=== PATIENT | female | born 1960 | race African-American/Black ===

== ENCOUNTER 2019-11-24 01:52 | Inpatient (IN) ==
[2019-11-24] MEDS ORDERED: ZOFRAN IV ONE (02:22)
[2019-11-24] MEDS ORDERED: NS 1,000 ML IV ONE (02:22)
[2019-11-24] MEDS ORDERED: DILAUDID IV ONE (02:22)
[2019-11-24 02:24] LABS: BASO# 0.03 X1000 (0.0-0.2); BASO% 0.2 % (0.0-0.8); EOS# 0.15 X1000 (0.0-0.7); EOS% 1.1 % (0.0-10.0); HEMATOCRIT 40.4 % (37.0-47.0); HEMOGLOBIN 13.4 g/dL (12.0-16.0); LYMPH% 18.5 % (20.5-51.1); MCH 32.1 PG (27-31); MCHC 33.2 g/dL (33-37); MCV 96.7 FL (81-99); MONO# 0.93 X1000 (0.11-0.59); MONO% 6.6 % (1.7-9.3); MPV 10.2 FL (7.4-10.4); NEUT# 10.35 X1000 (1.4-6.5); NEUT% 73.6 % (42.2-75.2); PLT 278 X1000 (130-400); RBC 4.18 XMIL (4.2-5.4); RDW 11.6 % (11.5-14.5); WBC 14.06 X1000 (4.8-10.8)
[2019-11-24 02:36] LABS: ESTIMATED GFR > 60
[2019-11-24 02:38] LABS: AGAP 13; ALB/GLOB RATIO 1.7; ALBUMIN 4.7 g/dL (3.5-5.0); ALKALINE PHOSPHATASE 62 U/L (32-104); BUN 15 mg/dL (8-22); CALCIUM 9.7 mg/dL (8.8-10.2); CHLORIDE 99 mmol/L (98-107); COSMO 282; CREATININE 1.1 mg/dL (0.5-0.9); GLUCOSE 135 mg/dL (70-104); GOT 158 U/L (10-30); GPT 71 U/L (10-36); POTASSIUM 3.7 mmol/L (3.5-5.1); SODIUM 140 mmol/L (136-145); TCO2 28 mmol/L (25-35); TOTAL BILIRUBIN 0.51 mg/dL (0.20-1.00); TOTAL PROTEIN 7.4 g/dL (6.3-8.3)
[2019-11-24 02:57] LABS: AMYLASE 2539 U/L (20-200); LIPASE 2330 U/L (13-60)
[2019-11-24 03:47] LABS: URINE SOURCE CLEAN CATCH
[2019-11-24 03:50] LABS: BILIRUBIN URINE NEGATIVE (NEGATIVE); BLOOD URINE NEGATIVE (NEGATIVE); COLOR YELLOW; GLUCOSE URINE NEGATIVE (NEGATIVE); KETONE URINE NEGATIVE (NEGATIVE); LEUKOCYTES URINE NEGATIVE (NEGATIVE); NITRITE URINE NEGATIVE (NEGATIVE); PROTEIN URINE TRACE mg/dL (NEGATIVE); SP GRAVITY URINE 1.046; TURBIDITY URINE CLEAR (CLEAR); UROBILINOGEN URINE NORMAL (NORMAL)
[2019-11-24 03:52] LABS: UR EPITHELIAL CELLS <10 /HPF (<10); URINE BACTERIA 1+ /HPF; URINE RBC <10 /HPF (<10); URINE WBC <10 /HPF (<10)
--- NOTE | 2019-11-24 03:56 | PROVIDER DOCUMENTATION ---
HPI-Abdominal Pain/GI Problem - General Chief Complaint: Abdominal Pain Stated Complaint: N/V/D Time Seen by Provider: 11/24/19 01:55 Source: patient Allergies/Adverse Reactions: Patient Allergies Allergy/AdvReac Type Severity Reaction Status Date / Time No Known Allergies Allergy Verified 11/24/19 02:11 Home Medications: Home Medication List Medication Instructions Recorded Confirmed Last Taken Type Duloxetine HCl 60 mg PO DAILY 11/24/19 11/24/19 Unknown History Gabapentin 300 mg PO DAILY 11/24/19 11/24/19 Unknown History - History of Present Illness-ABD Nature of Presenting Problems: 59 y/o BF c/o epigastric pain with N/V/D since yesterday. She denies any bad food or ill contacts. Pt notes that she has vomited 4-5 times in the last day and had 2 episodes of diarrhea. Abdominal Pain Onset Location: reports: RUQ, epigastric Pain Radiation: reports: RUQ Quality of Pain: reports: aching, sharp Severity in ED: reports: moderate Onset/Duration: reports: 2 days ago Timing: reports: still present, getting worse Activities at Onset: reports: light activity Exposure to sick contacts?: No Modifying Factors: improves with: vomiting Associated Symptoms: reports: diarrhea, heartburn, nausea, vomiting Last BM: 24 hours ago Dark Stools Present?: reports: none noticed Rectal Bleeding: reports: none # of Diarrhea Episodes: 2 Rectal Pain: reports: none # of Vomiting Episodes: 5 Emesis Description: reports: clear Bruising or Bleeding Gums?: No Similar Symptoms Previously?: No Recently seen or treated by another doctor?: No Review of Systems - Adult - REVIEW OF SYSTEMS - ADULT Constitutional: reports: no symptoms reported, see HPI Eyes: reports: no symptoms reported, see HPI Ears, Nose, Mouth & Throat: reports: no symptoms reported, see HPI Cardiovascular: reports: no symptoms reported, see HPI Respiratory: reports: no symptoms reported, see HPI Gastrointestinal: reports: see HPI, abdominal pain, diarrhea, nausea, vomiting Genitourinary: reports: no symptoms reported, see HPI Musculoskeletal: reports: no symptoms reported, see HPI Integumentary: reports: no symptoms reported, see HPI Neurological: reports: no symptoms reported, see HPI Psychiatric: reports: no symptoms reported, see HPI Endocrine: reports: no symptoms reported, see HPI Hematologic/Lymphatic: reports: no symptoms reported, see HPI Allergic/Immunologic: reports: no symptoms reported, see HPI All Other Systems: Reviewed and Negative Past History - Adult - PAST MEDICAL HISTORY-ADULT Review of Records: reports: Nursing Assessment Review, Medications Reviewed, Social history reviewed & non-contributory. Physical Exam-General - PHYSICAL EXAM-ADULT Initial Vital Signs Reviewed: Yes - CONSTITUTIONAL General Appearance: appears well, alert, no apparent distress - EYES Eyes: PERRL/EOMI - HEAD, EARS, NOSE, MOUTH & THROAT HENMT: normocephalic/atraumatic, moist mucous membranes, normal ENT inspection - NECK Neck: non-tender, full range of motion, supple, normal inspection - RESPIRATORY Respiratory: chest non-tender, lungs clear, normal breath sounds, no pleuratic chest pain, no respiratory distress, no accessory muscle use - CARDIOVASCULAR Cardiovascular: normal peripheral pulses, regular rate, rhythm, no edema, no gallop, no JVD, no murmur - GASTROINTESTINAL (ABDOMEN) Abdominal Exam: normal bowel sounds, soft, no organomegaly, no pulsatile mass, tenderness (epigastric) - LYMPHATIC Lymphatic: no adenopathy - MUSCULOSKELETAL Back Exam: normal inspection, no CVA tenderness, no vertebral tenderness Extremity: normal range of motion, non-tender, normal gait, normal inspection - SKIN Integumentary: normal color, normal turgor - NEUROLOGIC Neurologic: 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, grossly normal, no motor/sensory deficits - PSYCHIATRIC Psych/Mental Status: normal mood/affect, normal thought content, normal thought process, oriented x 3 Progress - PLAN OF CARE/RESULTS Progress/Plan/Lab Results: Vital Signs - 8 hr 11/24/19 01:54 11/24/19 02:39 11/24/19 03:22 Temperature 97.9 F Pulse Rate 61 56 L 60 Respiratory Rate 16 16 18 Blood Pressure 138/84 134/97 164/97 O2 Sat by Pulse Oximetry 100 100 100 Laboratory Results - last 24 hr 11/24/19 11/24/19 11/24/19 02:05 02:05 03:39 WBC 14.06 H RBC 4.18 L Hgb 13.4 Hct 40.4 MCV 96.7 MCH 32.1 H MCHC 33.2 RDW Std Deviation 11.6 Plt Count 278 MPV 10.2 Neut % (Auto) 73.6 Lymph % (Auto) 18.5 L Wayne % (Auto) 6.6 Eos % (Auto) 1.1 Baso % (Auto) 0.2 Neut # (Auto) 10.35 H Lymph # (Auto) 2.60 Wayne # (Auto) 0.93 H Eos # (Auto) 0.15 Baso # (Auto) 0.03 Sodium 140 Potassium 3.7 Chloride 99 Carbon Dioxide 28 Anion Gap 13 BUN 15 Creatinine 1.1 H Estimated GFR/1.73 m2 > 60 BUN/Creatinine Ratio 14 Glucose 135 H Calculated Osmolality 282 Calcium 9.7 Total Bilirubin 0.51 AST 158 H ALT 71 H Alkaline Phosphatase 62 Total Protein 7.4 Albumin 4.7 Globulin 2.7 Albumin/Globulin Ratio 1.7 Amylase 2539 H Lipase 2330 H Urine Source CLEAN CATCH Urine Color YELLOW Urine Turbidity CLEAR Urine pH 8.0 Ur Specific [place] 1.046 Urine Protein TRACE A Ur Glucose (Stick) NEGATIVE Ur Ketones (Stick) NEGATIVE Urine Blood NEGATIVE Urine Nitrite NEGATIVE Urine Bilirubin NEGATIVE Urobilinogen Dipstick NORMAL Urine Leukocytes NEGATIVE Orders Category Date Time Status CT ABD/PELVIS W/IV CONT ONLY [CT] Stat Exams 11/24/19 02:22 Taken AMYLASE [CHEM] Stat Lab 11/24/19 02:05 Completed CBC WITH ELECTRONIC DIFF [HEME] Stat Lab 11/24/19 02:05 Completed COMPREHENSIVE METABOLIC PANEL [CHEM] Stat Lab 11/24/19 02:05 Completed LIPASE [CHEM] Stat Lab 11/24/19 02:05 Completed URINALYSIS W/POSS RFLX CULT [URINALYSIS] Stat Lab 11/24/19 03:39 Results 0.9% Sodium Chloride Inj [Ns] 1,000 ml Med 11/24/19 02:22 Discontinued IV 999 mls/hr Hydromorphone [Dilaudid] Med 11/24/19 02:22 Discontinued 0.5 mg IV NOW ONE Ondansetron [Zofran] Med 11/24/19 02:22 Discontinued 4 mg IV NOW ONE Result Diagrams: 11/24/19 02:05 11/24/19 02:05 - CT/MRI 1 CT Study: Abdomen, Pelvis Impression: Abnormal, See EMR Report (pancreatitis) - CONSULTS/PCP/HOSPITALIST Notification #1 *Consult/PCP/Hospitalist*: Dr Foster Time Discussed: 04:07 Consult Disposition: Will see in ED, Admit Departure - Departure Date of Disposition Decision: 11/24/19 Time of Disposition Decision: 03:55 DIAGNOSIS: Pancreatitis Disposition: ADMITTED INPATIENT 09 Certified Medical Emergency: Emergent Condition: Fair Referrals and Follow-Ups: Miguel Foster MD [Primary Care Provider] - - Critical Care Note This patient required my direct & personal management of CC.: No Attestation - Physician/ SHA Attestation Patient care was provided by Advanced Practice Provider:: No The physician spent face to face time with patient:: Yes Advanced Practice Provider documentation review:: Supervising physician onsite and consulted in the evaluation and care of this patient. The physician did have a face to face encounter with the patient.
--- NOTE | 2019-11-24 06:47 | HISTORY AND PHYSICAL ---
PRIMARY CARE PROVIDER: Dr. Miguel Foster. CHIEF COMPLAINT: Abdominal pain, nausea and vomiting x1 day. HISTORY OF PRESENTING ILLNESS: A 59-year-old female with history of GERD and depression, who presented to emergency department with 1-day history of having severe abdominal pain. Patient states the pain was more in her epigastric region. She was having nausea and vomiting during this time. The patient was evaluated in the emergency department. She had laboratories drawn which did show she had markedly elevated lipase and amylase consistent with pancreatitis. The patient also had a CT scan of the abdomen which confirmed pancreatitis. Due to her presenting symptoms, she will require admission for further management. At the time of my examination, patient denied any headache, fever, chills, chest pain, shortness of breath, hemoptysis, melena, or weight changes, but complained of abdominal pain, nausea and vomiting. PAST MEDICAL HISTORY: Includes GERD and depression. PAST SURGICAL HISTORY: Back surgery. Hysterectomy. ALLERGIES: No known drug allergies. CURRENT MEDICATIONS: 1. Cymbalta 60 mg p.o. daily. 2. Gabapentin 300 mg p.o. daily. SOCIAL HISTORY: She denies any history of smoking. Admits to occasional alcohol use, mostly beers. Denies any illicit drug use. FAMILY HISTORY: No history of coronary disease. REVIEW OF SYSTEMS: Fourteen point review of systems as in HPI. Other systems negative. PHYSICAL EXAMINATION: GENERAL: Cooperative friendly female. She is resting more comfortably now. VITAL SIGNS: Temperature 97.9 degrees, pulse 61, respirations 16, and blood pressure 138/84. HEENT: Atraumatic, normocephalic. Extraocular movements intact. PERRLA. NECK: No masses. CHEST: Clear to auscultation. CARDIOVASCULAR: Regular rate and rhythm. S1, S2. ABDOMEN: Soft. Diffuse tenderness. EXTREMITIES: No edema. NEUROLOGIC: She is awake, alert, and oriented x3. : No bladder distention. SKIN: Warm. LABORATORIES AND STUDIES: WBC is 14.06, hemoglobin 13.4, hematocrit 40.4, and platelets 278,000. Sodium 140, potassium 3.7, chloride 99, CO2 28, BUN 15, creatinine is 1.1, glucose 135, amylase 2539, and lipase 2330. ASSESSMENT: This is a 59-year-old female with a history of GERD and depression, who presented to emergency department with 1-day history of persistent abdominal pain, nausea and vomiting. She was evaluated in the emergency department. Her symptoms were consistent with pancreatitis. Subsequently, she will require admission for further management. 1. Acute pancreatitis. 2. Gastroesophageal reflux disease. 3. Depression. PLAN: 1. We will admit the patient to medical floor with telemetry. 2. Keep patient NPO. 3. Continue with IV fluids, antiemetics, pain control. 4. Check an abdominal ultrasound. 5. We will hold home medications for now. 6. We will put patient on DVT prophylaxis with SCD's. 7. We will continue to follow and reassess. Make further recommendations based on patient's clinical course. cc: Nigel Foster MD
--- NOTE | 2019-11-24 07:52 | Diag Imaging Result Doc PS360 ---
EXAM: CT ABD/PELVIS W/IV CONT ONLY INDICATION: epigastric and RUQ abdo pain TECHNIQUE: This exam was performed using automated exposure control, adjustment of mA or kV according to patient size, and/or use of iterative reconstruction technique. COMPARISON: 06/23/2014 FINDINGS: There is fluid and inflammatory stranding surrounding the pancreas consistent with acute pancreatitis. No organized fluid collection is identified to indicate peripancreatic abscess. The pancreas enhances uniformly with no evidence of necrosis. There is no evidence of pancreatic ductal dilatation. There is no evidence of portal or splenic vein thrombosis. The gallbladder is distended. No radiopaque gallstones are appreciated. There is a stable small cyst in the left hepatic lobe. The liver is essentially unremarkable, otherwise. The spleen, adrenal glands, kidneys, and urinary bladder are essentially unremarkable. There is a small amount of free fluid layering in the pelvis. There is evidence of prior hysterectomy. The appendix is normal. There are a very few sigmoid colonic diverticula. There is no evidence of diverticulitis. Otherwise, there is no evidence of bowel wall thickening or bowel obstruction. There is questionable slight thickening of the distal esophagus which could represent mild esophagitis related to GERD. The remainder of the GI tract is essentially unremarkable. There has been prior fusion at L5-S1. There is no evidence of acute osseous abnormality. IMPRESSION: 1.Evidence of acute pancreatitis. No peripancreatic abscess or pancreatic necrosis is appreciated. 2.Prominent distended gallbladder. However, no radiopaque stones are appreciated. 3.Questionable slight thickening of the distal esophagus which could represent mild esophagitis related to GERD. 4.Other incidental/nonacute findings detailed above. Electronically signed by Irvin Parry 11/24/2019 7:49 AM
[2019-11-24] MEDS ORDERED: NS 1,000 ML IV SCH (08:08)
[2019-11-24] MEDS ORDERED: DILAUDID IV PRN (08:08)
[2019-11-24] MEDS ORDERED: DILAUDID ONE (08:58)
[2019-11-24] MEDS: DILAUDID IV PRN ×2 (09:01→13:51)
[2019-11-24] MEDS ORDERED: PRILOSEC PO ONE ×2 (12:32→15:30)
[2019-11-24] MEDS: DULCOLAX PR SCH ×2 (13:51→20:03)
[2019-11-24] MEDS: LR 1,000 ML IV SCH (13:51)
--- NOTE | 2019-11-24 14:33 | PROGRESS NOTE ---
DATE: 11/24/2019 INTERVAL HISTORY: No acute events overnight. Her vitals were unremarkable. She does not have any new labs this morning repeated. SUBJECTIVE: Ms. Agosto is feeling better. She denies any more vomiting. She is slightly nauseous. Her abdominal pain is improved. Ms. Agosto mentioned that she drinks 2 beers every day, but she never had any alcohol withdrawal syndrome. She denies known history of acute pancreatitis. She denies known family history of gallstones. She does take some herbal preparation for bowel regimen. OBJECTIVE: Vital Signs: Current temperature 98.5 degrees, pulse 60, respiratory rate 18, blood pressure 106/72, saturating 100% on room air. General: Not in acute distress. HEENT: Oral cavity is moist. Lungs: Air entry bilaterally equal. No wheeze, rhonchi, or crackles. Heart: S1 normal. No murmur or gallop. Abdomen: Soft. Tenderness in the epigastric region. Hypoactive bowel sounds. Extremities: No lower extremity edema. She is alert and oriented x3. LABORATORY DATA: No new labs today. Lipid panel is pending. ASSESSMENT AND PLAN: 1. Acute pancreatitis, likely alcohol induced. She was counseled about quitting alcohol altogether. She does not have CT scan evidence of gallstones, so I will cancel the ultrasound. I will follow up with lipid panel. Continue intravenous lactated Ringer's, and start the patient on full liquid diet and advance as tolerated. I will also keep her on omeprazole for gastric acidity and her chronic gastroesophageal reflux disease. I will keep her on bisacodyl to avoid constipation since she had stool on her CT scan. 2. Others. I will resume her home medication of [place] for her chronic back pain, Ambien for insomnia, as well as duloxetine. She is also taking gabapentin for chronic back pain, which I will resume. I am holding her estradiol since it increases risk of deep venous thrombosis. 3. Disposition. I will continue to monitor the patient inside the hospital for another 24 hours as we monitor her for advancement of diet and resolution of abdominal pain. She is in agreement with the plan. cc: Sameer Burns MD
[2019-11-24 15:00] LABS: CHOLESTEROL 175 mg/dL (0-200); HDL 69 mg/dL (45-65); LDL 96 mg/dL; TRIGLYCERIDES 52 mg/dL (35-135); VLDL 10 mg/dL
[2019-11-24 18:14] LABS: UR AMPHETAMINES QUAL NONE DETECTED (NONE DETECT); UR BARBITUATES QUAL NONE DETECTED (NONE DETECT); UR BENZODIAZEPIN QUAL NONE DETECTED (NONE DETECT); UR CANNABINOIDS QUAL NONE DETECTED (NONE DETECT); UR COCAINE QUAL NONE DETECTED (NONE DETECT); UR METHADONE QUAL NONE DETECTED (NONE DETECT); UR OPIATES QUAL NONE DETECTED (NONE DETECT); UR OXYCODONE QUAL NONE DETECTED (NONE DETECT); UR PCP QUAL NONE DETECTED (NONE DETECT)
[2019-11-24] MEDS: AMBIEN PO SCH (21:08)
[2019-11-24] MEDS: NORCO-5 PO PRN (21:12)
[2019-11-25] MEDS: LR 1,000 ML IV SCH ×3 (05:25→16:47)
[2019-11-25] MEDS: PRILOSEC PO SCH (06:05)
[2019-11-25 07:29] LABS: BASO# 0.03 X1000 (0.0-0.2); BASO% 0.5 % (0.0-0.8); EOS# 0.22 X1000 (0.0-0.7); EOS% 3.7 % (0.0-10.0); HEMATOCRIT 34.9 % (37.0-47.0); HEMOGLOBIN 11.1 g/dL (12.0-16.0); LYMPH# 2.43 X1000 (1.2-3.4); MCH 31.3 PG (27-31); MCHC 31.8 g/dL (33-37); MCV 98.3 FL (81-99); MONO# 0.38 X1000 (0.11-0.59); MONO% 6.4 % (1.7-9.3); NEUT# 2.86 X1000 (1.4-6.5); NEUT% 48.4 % (42.2-75.2); PLT 224 X1000 (130-400); RBC 3.55 XMIL (4.2-5.4); RDW 11.7 % (11.5-14.5); WBC 5.92 X1000 (4.8-10.8)
[2019-11-25 08:01] LABS: AGAP 11; BUN 9 mg/dL (8-22); CALCIUM 8.4 mg/dL (8.8-10.2); CHLORIDE 103 mmol/L (98-107); COSMO 278; CREATININE 0.9 mg/dL (0.5-0.9); ESTIMATED GFR > 60; GLUCOSE 95 mg/dL (70-104); POTASSIUM 4.1 mmol/L (3.5-5.1); SODIUM 140 mmol/L (136-145); TCO2 26 mmol/L (25-35)
[2019-11-25] MEDS: NEURONTIN PO SCH (08:06)
[2019-11-25] MEDS: CYMBALTA PO SCH (08:06)
[2019-11-25] MEDS: DULCOLAX PR SCH (08:07)
[2019-11-25] MEDS: NORCO-5 PO PRN (09:04)
--- NOTE | 2019-11-25 16:03 | PROGRESS NOTE ---
DATE: 11/25/2019 INTERVAL HISTORY: No acute events overnight. Ms. Agosto denies new complain. She states she is feeling slightly better than yesterday. It still hurts when she eats her meals, but she denies chest pain, shortness of breath, or cough. She denies nausea or vomiting. She has not had any bowel movement. REVIEW OF SYSTEMS: Positive for passing flatus. Positive for abdominal pain exacerbated with meals. VITALS: Temperature of 98 degrees, pulse 59, respiratory rate 20, blood pressure 135/70, saturating 100% on room air. PHYSICAL EXAMINATION: She is not in any acute distress. Oral cavity is moist. Air entry bilaterally equal. No wheeze, rhonchi or crackles. S1, S2 normal. No murmur or gallop. Abdomen is soft. Tenderness in epigastric region. Active bowel sounds. No lower extremity edema. She is alert and oriented x3. LABS: Suggestive of WBC 5.9, hemoglobin 11.1, platelet 224,000. Her calcium is 8.4. She does not have any liver function test done today. Her lipid panel yesterday did not have hypertriglyceridemia. IMAGING: No new imaging. ASSESSMENT AND PLAN: 1. Acute pancreatitis, idiopathic. She drinks alcohol but she is not a heavy drinker. She could drink probably 1 or 2 beers every day. She would need outpatient evaluation with GI team to see if she would need any endoscopic ultrasound or magnetic resonance cholangiopancreatography eventually. I will continue intravenous fluid at a reduced rate. Advance diet to mechanical soft. Follow up with liver function test and electrolyte panel tomorrow to evaluate for hypocalcemia. Continue bowel regimen with MiraLAX and bisacodyl which has been added to avoid constipation and enoxaparin for deep venous thrombosis prophylaxis. She was advised to walk in the hallway to prevent deep venous thrombosis. 2. Others. Continue Driver for chronic back pain; Ambien for insomnia; duloxetine for chronic back pain, along with gabapentin. I am holding her estradiol because of its increased risk of a deep venous thrombosis with acute pancreatitis. DISPOSITION: Continue to monitor patient inside the hospital for another 24 hours since she is still having abdominal pain and follow up and see how she does tomorrow. Plan of care discussed with her. She is in agreement with the plan. Her questions have been answered. cc: Sameer Burns MD
[2019-11-25] MEDS: LOVENOX SUBQ SCH (16:42)
[2019-11-25] MEDS: MIRALAX PO SCH (16:42)
[2019-11-25] MEDS: AMBIEN PO SCH (21:32)
[2019-11-26] MEDS: MIRALAX PO SCH ×2 (01:17→12:01)
[2019-11-26] MEDS: DULCOLAX PR SCH ×2 (05:32→12:00)
[2019-11-26] MEDS: LR 1,000 ML IV SCH (06:12)
[2019-11-26] MEDS: PRILOSEC PO SCH ×2 (06:12→12:00)
[2019-11-26 08:20] LABS: AGAP 12; ALB/GLOB RATIO 1.2; ALBUMIN 3.6 g/dL (3.5-5.0); ALKALINE PHOSPHATASE 47 U/L (32-104); BUN 6 mg/dL (8-22); CALCIUM 8.9 mg/dL (8.8-10.2); CHLORIDE 104 mmol/L (98-107); COSMO 281; CREATININE 0.8 mg/dL (0.5-0.9); ESTIMATED GFR > 60; GLUCOSE 96 mg/dL (70-104); GOT 19 U/L (10-30); GPT 21 U/L (10-36); POTASSIUM 3.8 mmol/L (3.5-5.1); SODIUM 142 mmol/L (136-145); TCO2 26 mmol/L (25-35); TOTAL PROTEIN 6.6 g/dL (6.3-8.3)
[2019-11-26] MEDS ORDERED: LR 1,000 ML IV SCH (08:45)
--- NOTE | 2019-11-26 10:29 | Diag Imaging Result Doc PS360 ---
EXAM: US GB < RUQ (LIMITED) HISTORY: Evaluate for gall stone. TECHNIQUE: Right upper quadrant ultrasound COMPARISON: None. FINDINGS: Normal pancreas. No abdominal aortic aneurysm. Normal inferior vena cava. No focal hepatic abnormality. No ascites in the right upper quadrant. Normal gallbladder. No stones. There is a small amount of sludge. The gallbladder wall is not thickened. The common bile duct measures 3 mm. Normal right kidney. No hydronephrosis. IMPRESSION: Small amount of sludge within the gallbladder. Electronically signed by Kvng Mendez 11/26/2019 10:27 AM
[2019-11-26] MEDS: NEURONTIN PO SCH (12:00)
[2019-11-26] MEDS: CYMBALTA PO SCH (12:00)
[2019-11-26] MEDS: LOVENOX SUBQ SCH (15:07)
[2019-11-26 15:13] VITALS: BP 137/85
--- NOTE | 2019-11-26 22:03 | DISCHARGE SUMMARY ---
ADMISSION DATE: 11/24/2019 DISCHARGE DATE: 11/26/2019 DISCHARGE DISPOSITION: Home. DISCHARGE CONDITION: Hemodynamically stable. Ms. Agosto has been tolerating soft diet without any nausea or vomiting. She still has some epigastric abdominal pain, but this has markedly improved from before. I communicated with her about her CAT scan and ultrasound findings. DISCHARGE DIAGNOSIS: Acute pancreatitis, likely alcohol induced, though the patient is not a heavy drinker. OTHER DIAGNOSES: 1. History of chronic gastroesophageal reflux disease. 2. History of depression. 3. History of chronic pain because of back surgery. DISCHARGE MEDICATIONS: 1. Zolpidem 12.5 mg at nighttime. 2. Duloxetine 60 mg daily. 3. Estradiol 1 mg daily. 4. Gabapentin 300 mg daily. 5. Hydrocodone/acetaminophen 5 mg 1 tablet b.i.d. as needed. 6. Methocarbamol 750 mg b.i.d. 7. Pantoprazole 40 mg daily. PHYSICAL EXAMINATION: Vital signs at time of discharge: Temperature 98.5 degrees, pulse 63, respiratory rate 21, blood pressure 137/85, saturating 100% room air. On physical examination, Ms. Agosto does not appear in acute distress. Oral cavity is moist. Air entry bilaterally equal. No wheeze, rhonchi or crackles. S1, S2 normal. No murmur or gallop. Abdomen is soft. Mild tenderness in the epigastric region. Active bowel sounds. No lower extremity edema. She is alert and oriented x3. LABORATORY DATA: At the time of admission and discharge: Her WBC was 14,000 on presentation which improved to 5.9 at the time of discharge. Hemoglobin 11.1, platelets 224,000. BUN 6, creatinine 0.8, which improved from 15 and 1.1, respectively, on admission. Her triglyceride levels were 52. Her amylase was 2500, lipase was 2300. Her urinalysis was negative. Urine toxicology was negative. Microbiology: None. DIAGNOSTIC DATA: Imaging during hospital admission: Abdomen and pelvis CT on 11/23 had evidence of acute pancreatitis without any peripancreatic abscess or pancreatic necrosis; prominent, distended gallbladder without any radiopaque stones; questionable slight thickening of the distal esophagus, which could represent mild esophagitis related to GERD. HOSPITAL COURSE SUMMARY: Ms. Agosto is a 59-year-old lady who presented on 11/24/2019 with chief complaints of abdominal pain, nausea and vomiting of about 1 day's duration. The pain was located in the epigastric region, associated with nausea and vomiting. When she presented, she had a temperature of 97.9 degrees, pulse of 61, respiratory rate of 16, blood pressure of 138/84, and she was saturating 100% on room air. Her initial laboratory had WBC of 14,000, lipase of 2500, amylase of 2300, and CT scan evidence of acute pancreatitis, so she was admitted for further management. She was resuscitated with intravenous fluids and was started on oral diet, which she has been tolerating well. Ultrasound of abdomen was performed for distended gallbladder, which did not have any evidence of cholecystitis or cholelithiasis. Her common bile duct diameter was also normal. There was only a small amount of sludge within the gallbladder. It was thought that her pancreatitis could be related to alcohol. Though the patient denied drinking heavily, she did have occasional 1 or 2 beers, and she had a beer prior to her symptoms had started. She was advised to refrain from taking alcohol. DISCHARGE INSTRUCTIONS: At the time of discharge, detailed discharge instructions were provided to her. Twenty-five minutes were spent in discharging the patient. All of her questions were answered. cc: Sameer Burns MD
== END 2019-11-26 17:46 | disposition home or self-care (01) | DRG 440 ==
LOC: ED 01:52 → SUATTDRO 01:53 → 3N 01:53
PROVIDERS: ATTEND Internal Medicine